=== PATIENT | female | born 1950 | race Caucasian/White ===

== ENCOUNTER 2017-01-13 15:53 | Inpatient (IN) | payer MEDICARE, MEDICAID ==
[~2017-01-13] VITALS: Ht 154.9 cm; Wt 57.8 kg
[2017-01-13] MEDS ORDERED: ONDANSETRON 2MG/ML, 2ML IVPush ONE (17:00)
[2017-01-13] MEDS ORDERED: SODIUM CHLORIDE FLUSH 10ML SYR IVF ONE (17:00)
[2017-01-13] MEDS ORDERED: SODIUM CHLORIDE 0.9% 1,000ML IVBOLUS ONE (17:00)
[2017-01-13] MEDS ORDERED: MORPHINE SULFATE 4 MG/ML, 1ML ONE ×2 (17:02→17:32)
[2017-01-13] MEDS ORDERED: ONDANSETRON 2MG/ML, 2ML ONE ×2 (17:03→22:07)
[2017-01-13] MEDS: MORPHINE SULFATE 4 MG/ML, 1ML IVPush PRN ×2 (17:05→17:35)
[2017-01-13 17:24] LABS: HEMATOCRIT 48.1 % (34.6-47.8); HEMOGLOBIN 15.6 g/dL (11.7-16.4); WHITE BLOOD COUNT 17.1 x10^3/uL (3.4-10)
[2017-01-13 17:30] LABS: ASPARTATE AMINO TRANSFERASE 30 U/L (15-37); BLOOD UREA NITROGEN 47 mg/dL (7-18)
[2017-01-13] MEDS ORDERED: LORazepam 2 MG/ML, 1ML IVPush ONE (19:00)
[2017-01-13] MEDS ORDERED: OXYC10TA6 PO (19:10)
[2017-01-13] MEDS ORDERED: PREG75CA PO (19:10)
[2017-01-13] MEDS ORDERED: LEVO137T3 PO (19:10)
[2017-01-13] MEDS ORDERED: AMLO10TA4 PO (19:10)
[2017-01-13] MEDS ORDERED: LISI-170 PO (19:10)
[2017-01-13] MEDS ORDERED: LORazepam 2 MG/ML, 1ML ONE (19:12)
[2017-01-13] MEDS: SODIUM CHLORIDE 0.9% 1,000 ML IV SCH (21:12)
[2017-01-13] MEDS ORDERED: LABETALOL 5MG/ML, 20ML IVPush PRN (21:30)
[2017-01-13] MEDS ORDERED: GUAIFENESIN/DM 200-20MG, 10ML UDC PO PRN (21:30)
[2017-01-13] MEDS ORDERED: ONDANSETRON ODT 4 MG PO PRN (21:30)
[2017-01-13] MEDS ORDERED: POLYETHYLENE GLYCOL 17 GM PACKET PO PRN (21:30)
[2017-01-13] MEDS ORDERED: ENOXAPARIN 40 MG/0.4 ML SQ SCH (21:30)
[2017-01-13] MEDS: ONDANSETRON 2MG/ML, 2ML IVPush PRN (22:08)
[2017-01-13 22:47] VITALS: BP 146/104
[2017-01-13] MEDS ORDERED: ACETAMINOPHEN 325 MG TABLET PO PRN (23:30)
[2017-01-13 23:54] VITALS: BP 146/104
[2017-01-14] MEDS ORDERED: METOCLOPRAMIDE 5 MG/ML, 2ML IVPush ONE
[2017-01-14] MEDS ORDERED: PROMETHAZINE 25 MG/ML, 1ML IM ONE (00:30)
[2017-01-14 03:24] VITALS: BP 136/91
[2017-01-14] MEDS: ONDANSETRON 2MG/ML, 2ML IVPush PRN (04:34)
[2017-01-14 05:25] LABS: HEMOGLOBIN 13.7 g/dL (11.7-16.4); WHITE BLOOD COUNT 13.1 x10^3/uL (3.4-10)
[2017-01-14 05:41] LABS: ASPARTATE AMINO TRANSFERASE 26 U/L (15-37); BLOOD UREA NITROGEN 39 mg/dL (7-18)
[2017-01-14 08:09] VITALS: BP 156/91
[2017-01-14] MEDS: LEVOTHYROXINE 137 MCG TABLET PO SCH (09:00)
[2017-01-14] MEDS: SENNA/DOCUSATE TABLET PO SCH (09:00)
[2017-01-14] MEDS ORDERED: morphine SULFATE 10 MG/ML, 1ML IVPush PRN (09:00)
[2017-01-14] MEDS: AMLODIPINE 5 MG TABLET PO SCH (09:00)
[2017-01-14] MEDS: PREGABALIN 75 MG CAPSULE PO SCH ×2 (09:00→21:00)
[2017-01-14] MEDS: FAMOTIDINE 20 MG/2 ML IVPush SCH (10:29)
[2017-01-14] MEDS: SODIUM CHLORIDE 0.9% 1,000 ML IV SCH (10:40)
[2017-01-14] MEDS ORDERED: BISACODYL 10 MG SUPP ONE (13:29)
[2017-01-14] MEDS ORDERED: BISACODYL 10 MG SUPP PR ONE ×2 (13:30→21:00)
[2017-01-14 14:00] VITALS: BP 143/78
[2017-01-14] MEDS ORDERED: MIDAZOLAM 1 MG/ML, 2ML ONE (15:26)
[2017-01-14] MEDS ORDERED: FENTANYL PF 100 MCG/2ML ONE ×4 (15:26→17:07)
[2017-01-14] MEDS ORDERED: OXYcodone 5 MG/5 ML ORAL.SOL UDC PO PRN (15:30)
[2017-01-14] MEDS ORDERED: PROMETHAZINE 25 MG/ML, 1ML IV PRN (15:30)
[2017-01-14] MEDS ORDERED: ONDANSETRON 2MG/ML, 2ML IVPush PRN (15:30)
[2017-01-14] MEDS ORDERED: LABETALOL 5MG/ML, 20ML IV PRN (15:30)
[2017-01-14] MEDS ORDERED: MEPERIDINE/PF 25MG/0.5ML IVPush PRN (15:30)
[2017-01-14] MEDS ORDERED: ACETAMINOPHEN 325 MG TABLET PO PRN (15:30)
[2017-01-14] MEDS ORDERED: hydrALAzine 20 MG/ML, 1ML IV PRN (15:30)
[2017-01-14] MEDS ORDERED: ONDANSETRON 2MG/ML, 2ML ONE (15:33)
[2017-01-14] MEDS ORDERED: SUCCINYLCHOLINE 20 MG/ML, 10ML ONE (15:33)
[2017-01-14] MEDS ORDERED: DEXAMETHASONE 4 MG/ML, 1ML ONE (15:33)
[2017-01-14] MEDS ORDERED: LABETALOL 5MG/ML 40ML VIAL ONE (15:33)
[2017-01-14] MEDS ORDERED: ROCURONIUM 10 MG/ML ONE (15:33)
[2017-01-14] MEDS ORDERED: NEOSTIGMINE 1 MG/ML, 10ML ONE (15:33)
[2017-01-14] MEDS ORDERED: PROPOFOL 10 MG/ML, 20ML ONE (15:33)
[2017-01-14] MEDS ORDERED: CEFAZOLIN 1,000 MG ONE (15:33)
[2017-01-14] MEDS ORDERED: GLYCOPYRROLATE 0.2MG/1ML ONE (15:33)
[2017-01-14] MEDS ORDERED: MEPERIDINE/PF 50 MG/ML ONE (16:33)
[2017-01-14] MEDS ORDERED: HYDROmorphone 1 MG/ML, 1ML ONE ×2 (16:40→16:51)
[2017-01-14] MEDS: HYDROmorphone 1 MG/ML, 1ML IV PRN ×4 (16:45→17:03)
[2017-01-14] MEDS: FENTANYL PF 100 MCG/2ML IV PRN ×2 (17:08→17:13)
[2017-01-14] MEDS: morphine SULFATE 10 MG/ML, 1ML IV PRN ×3 (18:15→23:03)
[2017-01-14 20:00] VITALS: BP 170/94
[2017-01-14] MEDS: LACTATED RINGERS 1,000 ML IV SCH (23:06)
[2017-01-15 00:28] VITALS: BP 154/96
[2017-01-15] MEDS: morphine SULFATE 10 MG/ML, 1ML IV PRN ×5 (01:01→08:29)
[2017-01-15] MEDS ORDERED: PHARMACOKINETIC MONITORING MC PRN (01:30)
[2017-01-15] MEDS ORDERED: VANCOMYCIN PER PHARMACY MC PRN (01:30)
[2017-01-15] MEDS: VANCOMYCIN PMX 1GM/200ML 200 ML IV SCH (01:32)
[2017-01-15 03:41] VITALS: BP 128/79
[2017-01-15] MEDS: LEVOTHYROXINE 137 MCG TABLET PO SCH (06:00)
[2017-01-15] MEDS: AMLODIPINE 5 MG TABLET PO SCH (09:00)
[2017-01-15] MEDS: PREGABALIN 75 MG CAPSULE PO SCH ×2 (09:00→21:11)
[2017-01-15] MEDS: FAMOTIDINE 20 MG/2 ML IVPush SCH (09:00)
[2017-01-15] MEDS: SENNA/DOCUSATE TABLET PO SCH (09:00)
[2017-01-15 09:04] VITALS: BP 137/90
[2017-01-15] MEDS: LACTATED RINGERS 1,000 ML IV SCH ×2 (11:06→19:07)
[2017-01-15 15:03] VITALS: BP 137/72
[2017-01-15] MEDS: ONDANSETRON 2MG/ML, 2ML IV PRN (15:32)
[2017-01-15 20:43] VITALS: BP 133/87
[2017-01-16] MEDS: VANCOMYCIN PMX 1GM/200ML 200 ML IV SCH (01:02)
[2017-01-16 04:01] VITALS: BP 138/85
[2017-01-16 04:52] LABS: HEMATOCRIT 37.3 % (34.6-47.8); WHITE BLOOD COUNT 10.6 x10^3/uL (3.4-10)
[2017-01-16 04:59] LABS: BLOOD UREA NITROGEN 17 mg/dL (7-18)
[2017-01-16] MEDS: LACTATED RINGERS 1,000 ML IV SCH ×2 (05:10→14:00)
[2017-01-16] MEDS: PREGABALIN 75 MG CAPSULE PO SCH ×2 (08:55→20:53)
[2017-01-16] MEDS: AMLODIPINE 5 MG TABLET PO SCH (08:55)
[2017-01-16] MEDS: LEVOTHYROXINE 137 MCG TABLET PO SCH (08:55)
[2017-01-16] MEDS: FAMOTIDINE 20 MG/2 ML IVPush SCH (08:55)
[2017-01-16] MEDS: SENNA/DOCUSATE TABLET PO SCH (08:55)
[2017-01-16 09:28] VITALS: BP 134/83
[2017-01-16 13:24] VITALS: BP 127/78
[2017-01-16] MEDS: SODIUM CHLORIDE 0.9% 1,000 ML IV SCH ×2 (16:54→23:58)
[2017-01-16 20:16] VITALS: BP 125/82
[2017-01-17] MEDS: VANCOMYCIN PMX 1GM/200ML 200 ML IV SCH (01:00)
[2017-01-17] MEDS: LEVOTHYROXINE 137 MCG TABLET PO SCH (06:00)
[2017-01-17] MEDS: SODIUM CHLORIDE 0.9% 1,000 ML IV SCH ×3 (06:20→18:51)
[2017-01-17 08:08] VITALS: BP 136/81
[2017-01-17 08:17] LABS: ASPARTATE AMINO TRANSFERASE 16 U/L (15-37); BLOOD UREA NITROGEN 13 mg/dL (7-18)
[2017-01-17 08:20] LABS: HEMATOCRIT 35.6 % (34.6-47.8); HEMOGLOBIN 11.6 g/dL (11.7-16.4); WHITE BLOOD COUNT 7.9 x10^3/uL (3.4-10)
[2017-01-17] MEDS: SENNA/DOCUSATE TABLET PO SCH (09:22)
[2017-01-17] MEDS: AMLODIPINE 5 MG TABLET PO SCH (09:22)
[2017-01-17] MEDS: PREGABALIN 75 MG CAPSULE PO SCH ×2 (09:22→22:37)
[2017-01-17] MEDS: FAMOTIDINE 20 MG/2 ML IVPush SCH (09:23)
[2017-01-17] MEDS: ONDANSETRON 2MG/ML, 2ML IV PRN (09:25)
[2017-01-17] MEDS: PROMETHAZINE 25MG TABLET PO PRN (13:18)
[2017-01-17] MEDS ORDERED: PROMETHAZINE 25 MG/ML, 1ML ONE (13:21)
[2017-01-17] MEDS: PROMETHAZINE 25 MG/ML, 1ML IM PRN (13:26)
[2017-01-17 15:26] VITALS: BP 126/78
[2017-01-17] MEDS ORDERED: POTASSIUM CHLORIDE 20 MEQ TAB.ER.PRT PO ONE ×2 (18:00)
[2017-01-17 20:31] VITALS: BP 146/83
[2017-01-18] MEDS: VANCOMYCIN PMX 1GM/200ML 200 ML IV SCH (00:57)
[2017-01-18] MEDS: SODIUM CHLORIDE 0.9% 1,000 ML IV SCH ×4 (00:58→23:22)
[2017-01-18 03:09] VITALS: BP 125/73
[2017-01-18 05:07] LABS: HEMATOCRIT 35.3 % (34.6-47.8); HEMOGLOBIN 11.6 g/dL (11.7-16.4); WHITE BLOOD COUNT 7.6 x10^3/uL (3.4-10)
[2017-01-18 05:50] LABS: BLOOD UREA NITROGEN 7 mg/dL (7-18)
[2017-01-18] MEDS: LEVOTHYROXINE 137 MCG TABLET PO SCH (06:39)
[2017-01-18 07:05] VITALS: BP 135/73
[2017-01-18] MEDS: ONDANSETRON 2MG/ML, 2ML IV PRN (07:50)
[2017-01-18] MEDS ORDERED: BISACODYL 10 MG SUPP PR ONE (08:00)
[2017-01-18] MEDS: OXYcodone IR 5MG TABLET PO PRN ×4 (08:03→22:35)
[2017-01-18] MEDS: PREGABALIN 75 MG CAPSULE PO SCH ×2 (09:10→20:48)
[2017-01-18] MEDS: AMLODIPINE 5 MG TABLET PO SCH (09:10)
[2017-01-18] MEDS: FAMOTIDINE 20 MG/2 ML IVPush SCH (09:10)
[2017-01-18] MEDS: SENNA/DOCUSATE TABLET PO SCH (09:10)
[2017-01-18] MEDS: PROMETHAZINE 25 MG/ML, 1ML IM PRN (12:22)
[2017-01-18 12:51] VITALS: BP 169/97
[2017-01-18] MEDS ORDERED: VANCOMYCIN 1,200 MG in SODIUM CHLORIDE 0.9% 250 ML IV SCH (13:00)
[2017-01-18] MEDS ORDERED: morphine SULFATE 10 MG/ML, 1ML ONE (13:55)
[2017-01-18] MEDS: morphine SULFATE 10 MG/ML, 1ML IVPush PRN ×3 (13:59→23:19)
[2017-01-18 19:00] VITALS: BP 137/89
[2017-01-19 01:13] VITALS: BP 127/74
[2017-01-19] MEDS: ONDANSETRON 2MG/ML, 2ML IV PRN ×3 (01:37→13:51)
[2017-01-19] MEDS: PROMETHAZINE 25 MG/ML, 1ML IM PRN ×3 (03:02→16:59)
[2017-01-19] MEDS: morphine SULFATE 10 MG/ML, 1ML IVPush PRN ×2 (03:06→23:00)
[2017-01-19] MEDS: OXYcodone IR 5MG TABLET PO PRN (05:31)
[2017-01-19] MEDS: SODIUM CHLORIDE 0.9% 1,000 ML IV SCH ×4 (05:32→23:00)
[2017-01-19 06:09] LABS: HEMATOCRIT 48.1 % (34.6-47.8); HEMOGLOBIN 15.6 g/dL (11.7-16.4); WHITE BLOOD COUNT 14.1 x10^3/uL (3.4-10)
[2017-01-19 06:13] LABS: BLOOD UREA NITROGEN 6 mg/dL (7-18)
[2017-01-19 06:16] LABS: ASPARTATE AMINO TRANSFERASE 23 U/L (15-37)
[2017-01-19] MEDS: LEVOTHYROXINE 137 MCG TABLET PO SCH (06:21)
[2017-01-19] MEDS ORDERED: BISACODYL 10 MG SUPP PR ONE (08:30)
[2017-01-19 08:45] VITALS: BP 176/105
[2017-01-19] MEDS: FAMOTIDINE 20 MG/2 ML IVPush SCH (08:49)
[2017-01-19 09:00] VITALS: BP 169/96
[2017-01-19] MEDS: AMLODIPINE 5 MG TABLET PO SCH (09:52)
[2017-01-19] MEDS: PREGABALIN 75 MG CAPSULE PO SCH ×2 (09:52→19:54)
[2017-01-19] MEDS: SENNA/DOCUSATE TABLET PO SCH (09:52)
[2017-01-19] MEDS ORDERED: POTASSIUM CHLORIDE 20 MEQ TAB.ER.PRT PO ONE ×2 (11:00→19:00)
[2017-01-19 12:11] LABS: OCCBLD OBC PASS
[2017-01-19] MEDS ORDERED: MAGNESIUM SULFATE PMX 2GM/50ML 50 ML IV ONE ×2 (12:30→19:00)
[2017-01-19] MEDS ORDERED: POTASSIUM CHLORIDE 20 MEQ in SODIUM CHLORIDE 0.9% 250 ML IV ONE (12:30)
[2017-01-19 13:48] VITALS: BP 170/102
[2017-01-19] MEDS: SCOPOLAMINE PATCH, 1.5MG PATCH.TD72 TD SCH (17:36)
[2017-01-19 19:50] VITALS: BP 170/99
[2017-01-20 01:15] VITALS: BP 166/89
[2017-01-20] MEDS: PROMETHAZINE 25 MG/ML, 1ML IM PRN (03:16)
[2017-01-20] MEDS: LEVOTHYROXINE 137 MCG TABLET PO SCH (05:21)
[2017-01-20 05:30] LABS: BLOOD UREA NITROGEN 15 mg/dL (7-18)
[2017-01-20 05:37] LABS: HEMATOCRIT 42.7 % (34.6-47.8); HEMOGLOBIN 14.1 g/dL (11.7-16.4); WHITE BLOOD COUNT 14.9 x10^3/uL (3.4-10)
[2017-01-20] MEDS: SODIUM CHLORIDE 0.9% 1,000 ML IV SCH (05:46)
[2017-01-20 08:29] VITALS: BP 172/95
[2017-01-20] MEDS: AMLODIPINE 5 MG TABLET PO SCH (08:32)
[2017-01-20] MEDS: PREGABALIN 75 MG CAPSULE PO SCH ×2 (08:32→21:15)
[2017-01-20] MEDS: SENNA/DOCUSATE TABLET PO SCH (08:32)
[2017-01-20 10:25] VITALS: BP 172/92
[2017-01-20] MEDS: OXYcodone IR 5MG TABLET PO PRN ×3 (10:27→17:31)
[2017-01-20] MEDS: PROMETHAZINE 25MG TABLET PO PRN ×2 (10:27→17:30)
[2017-01-20 11:04] VITALS: BP 153/85
[2017-01-20] MEDS ORDERED: BISACODYL 10 MG SUPP PR ONE (13:00)
[2017-01-20 14:00] VITALS: BP 148/83
[2017-01-20 18:46] VITALS: BP 156/92
[2017-01-21 01:50] VITALS: BP 163/82
[2017-01-21] MEDS: ONDANSETRON 2MG/ML, 2ML IV PRN (02:14)
[2017-01-21] MEDS: morphine SULFATE 10 MG/ML, 1ML IVPush PRN ×2 (02:14→22:10)
[2017-01-21 05:06] LABS: HEMOGLOBIN 11.2 g/dL (11.7-16.4); WHITE BLOOD COUNT 10.6 x10^3/uL (3.4-10)
[2017-01-21 05:08] LABS: BLOOD UREA NITROGEN 9 mg/dL (7-18)
[2017-01-21] MEDS: LEVOTHYROXINE 137 MCG TABLET PO SCH (05:45)
[2017-01-21] MEDS: OXYcodone IR 5MG TABLET PO PRN ×4 (05:46→20:16)
[2017-01-21] MEDS ORDERED: POTASSIUM CHLORIDE 20 MEQ TAB.ER.PRT PO ONE ×2 (07:30→16:30)
[2017-01-21 07:44] VITALS: BP 154/72
[2017-01-21] MEDS: SENNA/DOCUSATE TABLET PO SCH (07:59)
[2017-01-21] MEDS: AMLODIPINE 5 MG TABLET PO SCH (08:00)
[2017-01-21] MEDS: PROMETHAZINE 25MG TABLET PO PRN (08:00)
[2017-01-21] MEDS: PREGABALIN 75 MG CAPSULE PO SCH ×2 (08:00→20:16)
[2017-01-21 14:10] VITALS: BP 124/78
[2017-01-21] MEDS ORDERED: GUAIFENESIN/DM 200-20MG, 10ML UDC PO PRN (16:30)
[2017-01-21] MEDS ORDERED: PROMETHAZINE 25MG TABLET PO PRN (16:30)
[2017-01-21] MEDS ORDERED: ACETAMINOPHEN 325 MG TABLET PO PRN (16:30)
[2017-01-21] MEDS ORDERED: ONDANSETRON ODT 4 MG PO PRN (16:30)
[2017-01-21 16:49] LABS: BLOOD UREA NITROGEN 9 mg/dL (7-18)
[2017-01-21] MEDS ORDERED: CALCIUM CARBONATE 500 MG TAB.CHEW ONE (17:51)
[2017-01-21] MEDS: CALCIUM CARBONATE 500 MG TAB.CHEW PO PRN (17:52)
[2017-01-21 19:40] VITALS: BP 129/72
[2017-01-22 03:07] VITALS: BP 136/77
[2017-01-22] MEDS: OXYcodone IR 5MG TABLET PO PRN ×4 (04:48→20:17)
[2017-01-22] MEDS: LEVOTHYROXINE 137 MCG TABLET PO SCH (04:48)
[2017-01-22] MEDS: POLYETHYLENE GLYCOL 17 GM PACKET PO PRN (04:48)
[2017-01-22 05:13] LABS: HEMATOCRIT 35.3 % (34.6-47.8); HEMOGLOBIN 11.7 g/dL (11.7-16.4)
[2017-01-22 05:18] LABS: BLOOD UREA NITROGEN 7 mg/dL (7-18)
[2017-01-22 05:21] LABS: ASPARTATE AMINO TRANSFERASE 19 U/L (15-37)
[2017-01-22] MEDS: POTASSIUM CHLORIDE 20 MEQ PACKET PO ONE ×2 (06:35→07:12)
[2017-01-22 07:29] VITALS: BP 138/81
[2017-01-22] MEDS ORDERED: POTASSIUM CHLORIDE 40 MEQ in SODIUM CHLORIDE 0.9% 500 ML IV ONE (07:30)
[2017-01-22] MEDS ORDERED: POTASSIUM CHLORIDE 20 MEQ TAB.ER.PRT PO ONE (07:30)
[2017-01-22] MEDS: FAMOTIDINE 20 MG/2 ML IVPush SCH (08:13)
[2017-01-22] MEDS: SENNA/DOCUSATE TABLET PO SCH (08:14)
[2017-01-22] MEDS: AMLODIPINE 5 MG TABLET PO SCH (08:14)
[2017-01-22] MEDS: PREGABALIN 75 MG CAPSULE PO SCH ×2 (08:14→20:17)
[2017-01-22] MEDS ORDERED: POTASSIUM CHLORIDE 20 MEQ PACKET PO ONE (10:00)
[2017-01-22 13:50] VITALS: BP 133/72
[2017-01-22 14:04] LABS: BLOOD UREA NITROGEN 7 mg/dL (7-18)
[2017-01-22] MEDS: CALCIUM CARBONATE 500 MG TAB.CHEW PO PRN (16:02)
[2017-01-22] MEDS: SCOPOLAMINE PATCH, 1.5MG PATCH.TD72 TD SCH (16:30)
[2017-01-22] MEDS: ONDANSETRON 2MG/ML, 2ML IV PRN (19:18)
[2017-01-22 19:38] VITALS: BP 146/83
[2017-01-23] MEDS: OXYcodone IR 5MG TABLET PO PRN ×3 (00:32→09:46)
[2017-01-23] MEDS: morphine SULFATE 10 MG/ML, 1ML IVPush PRN (03:24)
[2017-01-23 03:25] VITALS: BP 116/78
[2017-01-23] MEDS: LEVOTHYROXINE 137 MCG TABLET PO SCH (05:29)
[2017-01-23 05:42] LABS: BLOOD UREA NITROGEN 9 mg/dL (7-18)
[2017-01-23 06:45] VITALS: BP 131/81
[2017-01-23] MEDS ORDERED: ONDA4TAB7 PO (07:08)
[2017-01-23] MEDS ORDERED: DIPHENHYDRAMINE 25 MG CAPSULE PO ONE (08:30)
[2017-01-23] MEDS: AMLODIPINE 5 MG TABLET PO SCH (09:44)
[2017-01-23] MEDS: FAMOTIDINE 20 MG/2 ML IVPush SCH (09:44)
[2017-01-23] MEDS: POLYETHYLENE GLYCOL 17 GM PACKET PO PRN (09:44)
[2017-01-23] MEDS: SENNA/DOCUSATE TABLET PO SCH (09:44)
[2017-01-23] MEDS: PREGABALIN 75 MG CAPSULE PO SCH (09:44)
== END 2017-01-23 14:19 | disposition home health service (06) | DRG 335 ==
LOC: ED 18:26 → EDIP 21:22 → 3NE 22:15 → 4NOR 01-14 16:24 → DCLOUNGE 01-23 13:24
PROVIDERS: ADMIT Hospitalist; ATTEND Hospitalist
PROC: 0DN80ZZ Release Small Intestine, Open Approach (ICD-10-PCS; principal; 2017-01-14 15:00)
DX: K56.5 Intestinal adhesions [bands] with obstruction (postinfection) (principal); E43 Unspecified severe protein-calorie malnutrition; E87.2 Acidosis; Z88.6 Allergy status to analgesic agent; D72.829 Elevated white blood cell count, unspecified; E03.9 Hypothyroidism, unspecified; E55.9 Vitamin D deficiency, unspecified; E86.1 Hypovolemia; E87.6 Hypokalemia; G89.29 Other chronic pain; I10 Essential (primary) hypertension; K56.7 Ileus, unspecified; M47.9 Spondylosis, unspecified; Z87.891 Personal history of nicotine dependence; Z68.24 Body mass index [BMI] 24.0-24.9, adult
CPT/HCPCS: 36415; 72110; 74020; 74177; 80048; 80053; 80202; 81003; 82040; 82272; 82306; 82962; 83036; 83605; 83690; 83735; 85025; 85610; 87040; 87150; 93005; 96374; 96375; 96376; J0690; J1100; J1170; J2175; J2250; J2270; J2405; J2550; J2704; J2710; J3010; J3370; J3480; J3490; Q0162; Q0169; J0330; J2060; J2765; J3475; J7030; J7040; J7050; J7120; Q0163; S0028

== ENCOUNTER 2017-01-25 11:31 | Inpatient (IN) | payer MEDICARE, MEDICAID ==
[~2017-01-25] VITALS: Ht 157.5 cm; Wt 58.4 kg
[~2017-01-25 11:31] MED LIST: AMLO10TA4 PO; LEVO137T3 PO; LISI-170 PO; ONDA4TAB7 PO; OXYC10TA6 PO; PREG75CA PO
[2017-01-25 12:22] LABS: HEMOGLOBIN 10.4 g/dL (11.7-16.4); WHITE BLOOD COUNT 26.2 x10^3/uL (3.4-10)
[2017-01-25] MEDS ORDERED: SODIUM CHLORIDE 0.9% 1,000ML IVBOLUS ONE (12:30)
[2017-01-25] MEDS ORDERED: SODIUM CHLORIDE FLUSH 10ML SYR IVF ONE (12:30)
[2017-01-25 12:33] LABS: BLOOD UREA NITROGEN 33 mg/dL (7-18)
[2017-01-25 13:06] LABS: DIFF TOTAL CELLS COUNTED 100 CELL DIFF
[2017-01-25 13:08] LABS: ANISOCYTOSIS 1+; POLYCHROMASIA 1+; VERIFY COUNTS? YES
[2017-01-25] MEDS ORDERED: OMNIPAQUE 350 MG/ML, 100ML BOTTLE ONE (14:42)
[2017-01-25] MEDS ORDERED: PIPERACILLIN/TAZO/PMX 3.375GM 50 ML ONE (15:07)
[2017-01-25] MEDS ORDERED: SODIUM CHLORIDE FLUSH 10ML SYR IVF PRN (15:30)
[2017-01-25] MEDS ORDERED: PIPERACILLIN/TAZO/PMX 3.375GM 50 ML IV ONE (15:30)
[2017-01-25] MEDS ORDERED: ONDANSETRON ODT 4 MG PO PRN (16:00)
[2017-01-25] MEDS ORDERED: GUAIFENESIN/DM 200-20MG, 10ML UDC PO PRN (16:00)
[2017-01-25] MEDS ORDERED: POLYETHYLENE GLYCOL 17 GM PACKET PO PRN (16:00)
[2017-01-25] MEDS ORDERED: LABETALOL 5MG/ML, 20ML IVPush PRN (16:00)
[2017-01-25] MEDS: PIPERACILLIN/TAZO/PMX 3.375GM 50 ML IV SCH ×2 (16:15→22:08)
[2017-01-25] MEDS ORDERED: GADOBUTROL 7.5 MMOL/7.5 ML PFS ONE (16:30)
[2017-01-25] MEDS ORDERED: ENOXAPARIN 40 MG/0.4 ML ONE (18:39)
[2017-01-25] MEDS: SODIUM CHLORIDE 0.9% 1,000 ML IV SCH ×2 (18:41→22:08)
[2017-01-25] MEDS: ENOXAPARIN 40 MG/0.4 ML SQ SCH (18:42)
[2017-01-25 21:00] VITALS: BP 110/57
[2017-01-25] MEDS ORDERED: DOXYCYCLINE 100MG TABLET PO ONE (21:00)
[2017-01-25 21:12] LABS: HEMATOCRIT 31.6 % (34.6-47.8); HEMOGLOBIN 10.4 g/dL (11.7-16.4); WHITE BLOOD COUNT 22.6 x10^3/uL (3.4-10)
[2017-01-25 21:37] LABS: DIFF TOTAL CELLS COUNTED 100 CELL DIFF
[2017-01-25 21:43] LABS: ANISOCYTOSIS 1+; VERIFY COUNTS? YES
[2017-01-25 21:44] LABS: POLYCHROMASIA 1+
[2017-01-25] MEDS: HYDROcodone/APAP 5/325 TABLET PO PRN (22:07)
[2017-01-25] MEDS: PREGABALIN 75 MG CAPSULE PO SCH (22:08)
[2017-01-26 01:15] VITALS: BP 98/54
[2017-01-26] MEDS: PIPERACILLIN/TAZO/PMX 3.375GM 50 ML IV SCH ×3 (05:05→21:14)
[2017-01-26 05:38] LABS: ASPARTATE AMINO TRANSFERASE 66 U/L (15-37); BLOOD UREA NITROGEN 24 mg/dL (7-18); HEMATOCRIT 29.9 % (34.6-47.8); HEMOGLOBIN 9.9 g/dL (11.7-16.4); WHITE BLOOD COUNT 15.1 x10^3/uL (3.4-10)
[2017-01-26 07:08] VITALS: BP 109/68
[2017-01-26] MEDS ORDERED: MAGNESIUM SULFATE PMX 4GM/100M 100 ML IV ONE (07:30)
[2017-01-26] MEDS ORDERED: POTASSIUM CHLORIDE 20 MEQ TAB.ER.PRT PO ONE (07:30)
[2017-01-26] MEDS: SENNA/DOCUSATE TABLET PO SCH (09:00)
[2017-01-26] MEDS: SODIUM CHLORIDE 0.9% 1,000 ML IV SCH (09:38)
[2017-01-26] MEDS: HYDROcodone/APAP 5/325 TABLET PO PRN ×3 (10:29→21:13)
[2017-01-26] MEDS: LEVOTHYROXINE 137 MCG TABLET PO SCH (10:30)
[2017-01-26] MEDS: PREGABALIN 75 MG CAPSULE PO SCH ×2 (10:30→21:13)
[2017-01-26 13:14] VITALS: BP 135/80
[2017-01-26] MEDS: ENOXAPARIN 40 MG/0.4 ML SQ SCH (16:39)
[2017-01-26 20:10] VITALS: BP 150/81
[2017-01-26] MEDS ORDERED: MAALOX/HYOSCYAMINE/LIDOCAINE 45 ML BTL PO ONE (20:30)
[2017-01-26] MEDS: DOXYCYCLINE 100MG TABLET PO SCH (21:13)
[2017-01-26] MEDS ORDERED: MORPHINE SULFATE 4 MG/ML, 1ML IVPush ONE (22:30)
[2017-01-27] MEDS: HYDROcodone/APAP 5/325 TABLET PO PRN ×2 (02:47→06:34)
[2017-01-27] MEDS: SODIUM CHLORIDE 0.9% 1,000 ML IV SCH ×2 (02:47→12:46)
[2017-01-27 03:29] VITALS: BP 144/76
[2017-01-27] MEDS: PIPERACILLIN/TAZO/PMX 3.375GM 50 ML IV SCH ×3 (05:27→18:08)
[2017-01-27 05:33] LABS: BLOOD UREA NITROGEN 9 mg/dL (7-18)
[2017-01-27 05:41] LABS: ASPARTATE AMINO TRANSFERASE 53 U/L (15-37)
[2017-01-27 05:43] LABS: HEMATOCRIT 31.3 % (34.6-47.8); HEMOGLOBIN 10.5 g/dL (11.7-16.4)
[2017-01-27 08:38] VITALS: BP 153/84
[2017-01-27] MEDS: PREGABALIN 75 MG CAPSULE PO SCH ×2 (09:17→22:01)
[2017-01-27] MEDS: SENNA/DOCUSATE TABLET PO SCH (09:17)
[2017-01-27] MEDS: OMEPRAZOLE 20 MG CAPSULE.DR PO SCH (09:17)
[2017-01-27] MEDS: LEVOTHYROXINE 137 MCG TABLET PO SCH (09:17)
[2017-01-27] MEDS: DOXYCYCLINE 100MG TABLET PO SCH ×2 (09:17→22:01)
[2017-01-27] MEDS: OXYcodone IR 5MG TABLET PO PRN ×3 (11:22→23:13)
[2017-01-27] MEDS: FLUCONAZOLE 200 MG TABLET PO SCH (12:46)
[2017-01-27 13:12] VITALS: BP 174/86
[2017-01-27] MEDS: ENOXAPARIN 40 MG/0.4 ML SQ SCH (16:52)
[2017-01-27] MEDS: POTASSIUM CHLORIDE 20 MEQ TAB.ER.PRT PO SCH (16:53)
[2017-01-27 19:32] VITALS: BP 171/87
[2017-01-27] MEDS: LISINOPRIL 20 MG TABLET PO SCH (22:01)
[2017-01-27] MEDS: ONDANSETRON 2MG/ML, 2ML IVPush PRN (22:03)
[2017-01-28] MEDS: PIPERACILLIN/TAZO/PMX 3.375GM 50 ML IV SCH ×4 (00:02→18:30)
[2017-01-28 01:58] VITALS: BP 125/68
[2017-01-28 05:54] LABS: HEMATOCRIT 33.1 % (34.6-47.8); WHITE BLOOD COUNT 8.7 x10^3/uL (3.4-10)
[2017-01-28 05:57] LABS: BLOOD UREA NITROGEN 6 mg/dL (7-18)
[2017-01-28] MEDS: OXYcodone IR 5MG TABLET PO PRN ×3 (05:59→20:48)
[2017-01-28 07:53] VITALS: BP 125/74
[2017-01-28] MEDS: PREGABALIN 75 MG CAPSULE PO SCH ×2 (09:57→20:43)
[2017-01-28] MEDS: LEVOTHYROXINE 137 MCG TABLET PO SCH (09:57)
[2017-01-28] MEDS: DOXYCYCLINE 100MG TABLET PO SCH (09:57)
[2017-01-28] MEDS: SENNA/DOCUSATE TABLET PO SCH (09:57)
[2017-01-28] MEDS: OMEPRAZOLE 20 MG CAPSULE.DR PO SCH (09:58)
[2017-01-28] MEDS: POTASSIUM CHLORIDE 20 MEQ TAB.ER.PRT PO SCH ×3 (09:58→17:23)
[2017-01-28] MEDS: FLUCONAZOLE 200 MG TABLET PO SCH (09:58)
[2017-01-28] MEDS: MAALOX/HYOSCYAMINE/LIDOCAINE 45 ML BTL PO SCH ×3 (12:52→20:48)
[2017-01-28] MEDS: SULFAMETH./TRIMETHOPRIM DS 800MG/160MG TABLET PO SCH ×2 (12:52→20:43)
[2017-01-28] MEDS: ONDANSETRON 2MG/ML, 2ML IVPush PRN ×2 (12:56→20:43)
[2017-01-28 14:22] VITALS: BP 134/73
[2017-01-28] MEDS: ENOXAPARIN 40 MG/0.4 ML SQ SCH (17:23)
[2017-01-28] MEDS: LISINOPRIL 20 MG TABLET PO SCH (20:43)
[2017-01-28 20:57] VITALS: BP 140/75
[2017-01-29] MEDS: OXYcodone IR 5MG TABLET PO PRN ×4 (00:51→16:41)
[2017-01-29] MEDS: PIPERACILLIN/TAZO/PMX 3.375GM 50 ML IV SCH ×3 (00:54→12:40)
[2017-01-29 01:00] VITALS: BP 132/73
[2017-01-29 04:58] LABS: BLOOD UREA NITROGEN 11 mg/dL (7-18)
[2017-01-29] MEDS: MAALOX/HYOSCYAMINE/LIDOCAINE 45 ML BTL PO SCH ×3 (06:13→16:14)
[2017-01-29 06:58] VITALS: BP 107/67
[2017-01-29] MEDS ORDERED: POTASSIUM CHLORIDE 20 MEQ TAB.ER.PRT PO ONE (07:30)
[2017-01-29] MEDS: FLUCONAZOLE 200 MG TABLET PO SCH (07:54)
[2017-01-29] MEDS: SENNA/DOCUSATE TABLET PO SCH (07:54)
[2017-01-29] MEDS: LEVOTHYROXINE 137 MCG TABLET PO SCH (07:54)
[2017-01-29] MEDS: SULFAMETH./TRIMETHOPRIM DS 800MG/160MG TABLET PO SCH (07:54)
[2017-01-29] MEDS: PREGABALIN 75 MG CAPSULE PO SCH (07:54)
[2017-01-29] MEDS: OMEPRAZOLE 20 MG CAPSULE.DR PO SCH (07:55)
[2017-01-29 13:26] VITALS: BP 105/68
[2017-01-29] MEDS: ENOXAPARIN 40 MG/0.4 ML SQ SCH (16:14)
[2017-01-29] MEDS ORDERED: CEFD300C37 PO (17:27)
[2017-01-29] MEDS ORDERED: SULF-169 PO (17:27)
== END 2017-01-29 18:37 | disposition home health service (06) | DRG 871 ==
LOC: ED 11:47 → EDIP 15:43 → 4WST 20:27
PROVIDERS: ADMIT Internal Medicine; ATTEND Family Medicine
DX: A41.9 Sepsis, unspecified organism (principal); E43 Unspecified severe protein-calorie malnutrition; J96.01 Acute respiratory failure with hypoxia; I95.9 Hypotension, unspecified; L89.303 Pressure ulcer of unspecified buttock, stage 3; J18.9 Pneumonia, unspecified organism; K56.7 Ileus, unspecified; D63.8 Anemia in other chronic diseases classified elsewhere; E03.9 Hypothyroidism, unspecified; E55.9 Vitamin D deficiency, unspecified; E87.6 Hypokalemia; I10 Essential (primary) hypertension; Z87.891 Personal history of nicotine dependence; G89.29 Other chronic pain; M54.30 Sciatica, unspecified side; M70.62 Trochanteric bursitis, left hip; M70.61 Trochanteric bursitis, right hip; Y93.89 Activity, other specified; Z90.49 Acquired absence of other specified parts of digestive tract; Z79.899 Other long term (current) drug therapy; Z88.5 Allergy status to narcotic agent; Z68.23 Body mass index [BMI] 23.0-23.9, adult; K20.9 Esophagitis, unspecified
CPT/HCPCS: 36415; 72197; 74022; 74177; 80048; 80053; 81001; 82040; 83605; 83690; 83735; 84145; 84439; 85025; 85610; 85730; 86677; 87040; 87070; 87077; 87086; 87106; 87186; 87205; 93005; 96361; 96365; 96366; 96372; A9585; J1650; J2405; J2543; Q9967; J3475; J7030

== ENCOUNTER 2019-10-08 09:14 | Emergency (ER) | payer MEDICARE, MEDICAID ==
[~2019-10-08] VITALS: Ht 154.9 cm; Wt 58.0 kg
[~2019-10-08 09:14] MED LIST changes: +CEFD300C37 PO; +SULF-169 PO
--- NOTE | 2019-10-08 09:21 | NUR ---
PATIENT ARRIVES WITH [facility] FROM HOME. SHE HAS LBP THAT IS A 10 OF 10. SHE STOPPED TAKING HER OXY 4 DAYS AGO AND CLAIMS THAT SHE HAS ANOTHER RX BUT SHE DOESN'T HAVE MONEY TO FILL IT. PATIENT HAD A PAIN PUMP REMOVED BY DR CALDERON ONE WEEK AGO. SHE HAS A LARGE HEMATOMA TO LOWER LEFT BACK WHERE PAIN PUMP WAS REMOVED; THERE IS A ROUGHLY 5CM SURGICAL INCISION THAT IS DRAINING SANGUINOUS FLUID SLIGHTLY, HAS ÁNGEL IN PLACE WITH SOME DEHISCENSE LOWER SIDE OF WOUND. IN BED ON MONITOR.
[2019-10-08] MEDS ORDERED: SODIUM CHLORIDE FLUSH 10ML SYR IVF ONE (09:30)
[2019-10-08] MEDS ORDERED: ONDANSETRON 2MG/ML, 2ML IVPush ONE (09:30)
[2019-10-08] MEDS ORDERED: MORPHINE SULFATE 4 MG/ML, 1ML ONE ×2 (09:36→11:21)
[2019-10-08] MEDS ORDERED: ONDANSETRON 2MG/ML, 2ML ONE (09:36)
[2019-10-08] MEDS: MORPHINE SULFATE 4 MG/ML, 1ML IVPush PRN ×2 (09:37→11:27)
[2019-10-08 10:06] LABS: BASOPHILS # (AUTO) 0.01 x10^3/uL (0-0.1); BASOPHILS % (AUTO) 0 % (0-1); EOSINOPHILS # (AUTO) 0.16 x10^3/uL (0-0.4); EOSINOPHILS % (AUTO) 1 % (1-7); LYMPHOCYTES # (AUTO) 1.06 x10^3/uL (1-3.4); LYMPHOCYTES % (AUTO) 7 % (22-44); MD NO; MEAN CORPUSCULAR HEMOGLOBIN 34.5 pg (27.0-34.8); MEAN CORPUSCULAR HGB CONC 33.5 g/dL (32.4-35.8); MEAN PLATELET VOLUME 7.3 fL (7.4-10.4); MONOCYTES # (AUTO) 1.36 x10^3/uL (0.2-0.8); MONOCYTES % (AUTO) 9 % (2-9); NEUTROPHILS % (AUTO) 82 % (42-75); PLATELET COUNT 218 x10^3/uL (130-400); RED BLOOD COUNT 4.54 x10^6/uL (3.82-5.3); RED CELL DISTRIBUTION WIDTH 17.3 % (9.6-15.2)
[2019-10-08 10:21] LABS: ALBUMIN 3.8 g/dL (3.4-5.0); ANION GAP 10 mmol/L (5-15); CALCIUM 9.4 mg/dL (8.5-10.1); CHLORIDE 103 mmol/L (98-107); CREATININE 0.82 mg/dL (0.55-1.02)
--- NOTE | 2019-10-08 10:43 | NUR ---
PATIENT TAKEN WITH TECH TO CT SCAN. STATES PAIN 10/28
[2019-10-08] MEDS ORDERED: LIDOCAINE-MPF 1%, 5ML ONE (10:46)
--- NOTE | 2019-10-08 10:48 | NUR ---
PATIENT SET UP FOR ÁNGEL/IRRAGATION/HEMATOMA EVACUATION PROCEDURE. PATIENT IN CT WILL PROCEED WHEN SHE RETURNS.
--- NOTE | 2019-10-08 10:50 | NUR ---
GOT PATIENT LIDOCAINE 1% AT BEDSIDE FOR MD ADMINISTRATION.
[2019-10-08] MEDS ORDERED: LIDOCAINE-MPF 1%, 5ML INFIL ONE (11:00)
[2019-10-08] MEDS ORDERED: OMNIPAQUE 350 MG/ML, 100ML BOTTLE ONE (11:13)
--- NOTE | 2019-10-08 11:27 | NUR ---
PATIENT IRRAGATED AND GETTING ÁNGEL (ALOT) REMOVED, REMEDICATED FOR PAIN. SHE STATES PAIN WAS 9 - ON MONITOR, VSS
[2019-10-08 11:43] VITALS: BP 131/89
--- NOTE | 2019-10-08 11:50 | NUR ---
when i went to discharge patient and dress wound patient refused. she had her shirt on and her abdominal binder from home covering area and was adament about leaving. she refused any investigation of wound or care at this time. she states she is taking a cab home, asked if she needed a voucher and she said no and began walking out. she swears at staff a lot and has an odd presentation yelling at staff that she's in pain, that they don't care, that her surgical doctor is ____ (swear words). discharge teaching reviewed as best as I could as patient adament about leaving.
== END 2019-10-08 12:00 | disposition home or self-care (01) ==
LOC: ED 10:05
DX: S39.012A Strain of muscle, fascia and tendon of lower back, initial encounter (principal); S31.010A Laceration without foreign body of lower back and pelvis without penetration into retroperitoneum, initial encounter; F17.200 Nicotine dependence, unspecified, uncomplicated; G89.29 Other chronic pain; Z90.89 Acquired absence of other organs; X58.XXXA Exposure to other specified factors, initial encounter; Y93.89 Activity, other specified; Y92.89 Other specified places as the place of occurrence of the external cause; Y99.8 Other external cause status
CPT/HCPCS: 10140; 36415; 74177; 80048; 82040; 85025; 96374; 96375; 96376; 99285; J2270; J2405; Q9967; 12002

== ENCOUNTER 2019-10-10 04:34 | Emergency (ER) | payer MEDICARE, MEDICAID ==
[~2019-10-10] VITALS: Ht 154.9 cm; Wt 55.0 kg
--- NOTE | 2019-10-10 04:44 | NUR ---
PT BIB [facility] FOR [facility] AT HOME. PT SLIPPED ON CAT FOOD. PT SAYS SHE HAS BACK PAIN AND RIGHT ARM PAIN. PT HAS HX OF BACK PAIN . PT SEES PAIN MANAGEMENT MD. BP ELEVATED BUT OTHER VSS. CALL LIGHT IN REACH
[2019-10-10] MEDS ORDERED: HYDROmorphone 1 MG/ML, 1ML INJ IM ONE (05:00)
[2019-10-10] MEDS ORDERED: ONDANSETRON ODT 4 MG PO ONE (05:00)
[2019-10-10] MEDS ORDERED: ONDANSETRON ODT 4 MG ONE (05:07)
[2019-10-10] MEDS ORDERED: HYDROmorphone 1 MG/ML, 1ML INJ ONE (05:08)
--- NOTE | 2019-10-10 05:23 | NUR ---
ATTEMPTED TO PUT ON C COLLAR. PT REFUSED. NOTIFIED
--- NOTE | 2019-10-10 05:38 | NUR ---
PT WAS REFUSING CT. MD SPOKE WITH PT AND PT AGREED TO CT. PT AT CT
[2019-10-10 05:44] LABS: ALANINE AMINOTRANSFERASE 17 U/L (12-78); ALBUMIN 3.5 g/dL (3.4-5.0); ANION GAP 6 mmol/L (5-15); CALCIUM 9.3 mg/dL (8.5-10.1); CHLORIDE 101 mmol/L (98-107); CREATININE 0.84 mg/dL (0.55-1.02)
[2019-10-10 05:46] LABS: ALKALINE PHOSPHATASE 89 U/L (45-117); BILIRUBIN,TOTAL 3.3 mg/dL (0.2-1.0); TOTAL PROTEIN 7.6 g/dL (6.4-8.2)
[2019-10-10 06:09] LABS: MEAN CORPUSCULAR HEMOGLOBIN 34.1 pg (27.0-34.8); MEAN CORPUSCULAR HGB CONC 33.5 g/dL (32.4-35.8); MEAN PLATELET VOLUME 8.2 fL (7.4-10.4); PLATELET COUNT 242 x10^3/uL (130-400); RED CELL DISTRIBUTION WIDTH 16.6 % (9.6-15.2)
--- NOTE | 2019-10-10 06:20 | NUR ---
PT RESTNG. EVEN RISE AND FALL OF CHEST OBSERVED. CALL LIGHT IN REACH
[2019-10-10 06:29] LABS: BASOPHILS # (AUTO) 0.09 x10^3/uL (0-0.1); BASOPHILS % (AUTO) 1 % (0-1); EOSINOPHILS # (AUTO) 0.21 x10^3/uL (0-0.4); EOSINOPHILS % (AUTO) 2 % (1-7); LYMPHOCYTES # (AUTO) 0.89 x10^3/uL (1-3.4); LYMPHOCYTES % (AUTO) 8 % (22-44); MD SCAN; MONOCYTES # (AUTO) 1.65 x10^3/uL (0.2-0.8); MONOCYTES % (AUTO) 15 % (2-9); NEUTROPHILS # (AUTO) 8.15 x10^3/uL (1.8-6.8); NEUTROPHILS % (AUTO) 74 % (42-75)
--- NOTE | 2019-10-10 06:51 | NUR ---
REPORT TO OSMAN ARRIAZA
[2019-10-10 07:25] VITALS: BP 153/91
--- NOTE | 2019-10-10 07:56 | NUR ---
pt back from imaging
--- NOTE | 2019-10-10 08:15 | NUR ---
PT REFUSING WOUND CARE FROM [facility] [employer]. STATES "ALL I WANT IS F-ING MORPHINE" PT REFUSED TYLENOL & REVIEW OF DISCHARGE PAPERWORK. PT ASSISTED TO DISCHARGE IN WHEELCHAIR, TAXI CALLED.
[2019-10-10] MEDS ORDERED: SILVER NITRATE STICK TP ONE ×2 (08:24→08:30)
[2019-10-10] MEDS ORDERED: ACETAMINOPHEN 325 MG TABLET ONE (08:26)
[2019-10-10] MEDS ORDERED: ACETAMINOPHEN 325 MG TABLET PO ONE (08:30)
== END 2019-10-10 09:02 | disposition left against medical advice (07) ==
LOC: ED 06:08
DX: S16.1XXA Strain of muscle, fascia and tendon at neck level, initial encounter (principal); S50.01XA Contusion of right elbow, initial encounter; S09.90XA Unspecified injury of head, initial encounter; E03.9 Hypothyroidism, unspecified; M54.5 Low back pain; M54.6 Pain in thoracic spine; I10 Essential (primary) hypertension; G89.29 Other chronic pain; W01.0XXA Fall on same level from slipping, tripping and stumbling without subsequent striking against object, initial encounter; Y93.89 Activity, other specified; Y92.009 Unspecified place in unspecified non-institutional (private) residence as the place of occurrence of the external cause; Y99.8 Other external cause status
CPT/HCPCS: 36415; 70450; 72072; 72110; 72125; 72220; 73080; 80053; 85025; 96372; 99285; J1170; Q0162

== ENCOUNTER 2019-10-12 11:02 | Emergency (ER) | payer MEDICAID, MEDICARE ==
[~2019-10-12] VITALS: Ht 154.9 cm; Wt 52.0 kg
[2019-10-12 11:16] VITALS: BP 117/85
--- NOTE | 2019-10-12 12:06 | NUR ---
Pt refusing vitals, yelling at staff. Left prior to DC instructions/signature.
== END 2019-10-12 12:15 | disposition home or self-care (01) ==
LOC: ED 12:02
DX: M54.5 Low back pain (principal); G89.29 Other chronic pain; F17.210 Nicotine dependence, cigarettes, uncomplicated; I10 Essential (primary) hypertension; Z90.89 Acquired absence of other organs
CPT/HCPCS: 99283; 99406

== ENCOUNTER 2019-10-12 13:21 | Emergency (ER) | payer MEDICAID, MEDICARE ==
[2019-10-12 13:28] VITALS: BP 130/86
--- NOTE | 2019-10-12 13:35 | NUR ---
BIB [facility] FROM HOME AFTER MULTIPLE CALLS ND [facility] BEING CALL TO THE HOUSE MULTIPLE TIMES. [employer] PLACED PT ON LEGAL HOLD FOR NOT BEING ABLE TO CARE FOR SELF, PT LIVES ALONE. PT STATES SHE SHE'S BEEN STUCK IN BED RECENTLY AND LBP. [facility] STATES PT WAS AGGRESSIVE WITH PD AND TRIED TO BITE THEM. 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 PT C/O LOW BACK PAIN. PT YELLING AT STAFF. PT ALLOWED LAB TO DRAW BLOOD.
--- NOTE | 2019-10-12 13:38 | NUR ---
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
--- NOTE | 2019-10-12 13:40 | NUR ---
PT MOVED ROOMS TO BE IN DIRECT SIGHT OF SITTER. PT COMPLIANT, BUT COMPLAINING/YELLING THE ENTIRE TIME.
[2019-10-12 13:55] LABS: BASOPHILS # (AUTO) 0.08 x10^3/uL (0-0.1); BASOPHILS % (AUTO) 1 % (0-1); EOSINOPHILS # (AUTO) 0.04 x10^3/uL (0-0.4); EOSINOPHILS % (AUTO) 1 % (1-7); LYMPHOCYTES # (AUTO) 1.56 x10^3/uL (1-3.4); LYMPHOCYTES % (AUTO) 21 % (22-44); MD NO; MEAN CORPUSCULAR HEMOGLOBIN 34.3 pg (27.0-34.8); MEAN CORPUSCULAR HGB CONC 33.8 g/dL (32.4-35.8); MEAN CORPUSCULAR VOLUME 101.4 fL (80-100); MONOCYTES # (AUTO) 0.86 x10^3/uL (0.2-0.8); MONOCYTES % (AUTO) 11 % (2-9); NEUTROPHILS # (AUTO) 5.05 x10^3/uL (1.8-6.8); NEUTROPHILS % (AUTO) 67 % (42-75); PLATELET COUNT 334 x10^3/uL (130-400); RED BLOOD COUNT 4.37 x10^6/uL (3.82-5.3); RED CELL DISTRIBUTION WIDTH 16.1 % (9.6-15.2)
[2019-10-12 14:02] LABS: ALBUMIN 2.9 g/dL (3.4-5.0); ANION GAP 9 mmol/L (5-15); CALCIUM 8.8 mg/dL (8.5-10.1); CHLORIDE 107 mmol/L (98-107); SALICYLATE LEVEL 13.7 mg/dL (2.8-20.0)
[2019-10-12 14:05] LABS: ALANINE AMINOTRANSFERASE 12 U/L (12-78); ALKALINE PHOSPHATASE 72 U/L (45-117); BILIRUBIN,TOTAL 0.3 mg/dL (0.2-1.0); CREATINE KINASE, TOTAL 34 U/L (26-192); CREATININE 0.87 mg/dL (0.55-1.02); TOTAL PROTEIN 7.4 g/dL (6.4-8.2)
--- NOTE | 2019-10-12 14:05 | NUR ---
PROTECTION CONSULTANT IS NOT CONTINUING THE HOLD ON THIS PT. PT HAS GOTTEN OUT OF BED TO CLOSE THE CURTAINS. PT AMBULATING AROUND WITH STEADY GAIT.
--- NOTE | 2019-10-12 14:12 | NUR ---
ORDERED DIET TRAY, PER .
--- NOTE | 2019-10-12 14:20 | NUR ---
PT AMBULATED TO RESTROOM WITH STEADY GAIT. PT REFUSED TO GIVE URINE SAMPLE.
--- NOTE | 2019-10-12 14:28 | NUR ---
PT PIV FOUND ON FLOOR IN ROOM, WITH TIP INTACT, WHEN PT ELOPED. MD AND [employer] REMOVAL WORKER NOTIFIED.
== END 2019-10-12 14:30 | disposition left against medical advice (07) ==
LOC: ED 14:00
DX: M54.5 Low back pain (principal); G89.29 Other chronic pain; R11.0 Nausea; R94.31 Abnormal electrocardiogram [ECG] [EKG]; E03.9 Hypothyroidism, unspecified; I10 Essential (primary) hypertension; Z90.89 Acquired absence of other organs
CPT/HCPCS: 36415; 80053; 80307; 82550; 83880; 85025; 93005; 99284